=== PATIENT | female | born 1965 | race Caucasian/White ===

== ENCOUNTER 2020-08-25 17:49 | Emergency (ER) | payer OTHER ==
[~2020-08-25] VITALS: Ht 170.2 cm; Wt 97.1 kg
[~2020-08-25 17:49] MED LIST: AMOXICILLIN/POTASSIU PO; DOXYCYCLINE 10100 M1 PO; NORCO 5-325 TA1 EACH PO; PREDNISONE 10 M10 M1 PO; PROAIR HFA8.5 GM; PROTONIX40 M2 PO; PROZAC PO; SEE COMMENTS; TESSALON200 MG PO; VICODIN ES TAB1 EACH PO; VICODIN PO; ZOFRAN4 MG PO; [UNRECOGNIZED DRUG - OTHER]
[2020-08-25] MEDS ORDERED: CRESTOR20 MG PO (18:05)
[2020-08-25] MEDS ORDERED: LEXAPRO 10 MG T10 M2 PO (18:05)
[2020-08-25] MEDS ORDERED: KEFLEX500 M1 PO (20:19)
[2020-08-25] MEDS ORDERED: HYDROCODON-ACE1 EAC7 PO (20:19)
[2020-08-25 20:34] VITALS: BP 131/65
== END 2020-08-25 20:36 | disposition home or self-care (01) ==
LOC: M.ERS 17:49
DX: S61.212A Laceration without foreign body of right middle finger without damage to nail, initial encounter (principal); E78.5 Hyperlipidemia, unspecified; Z90.710 Acquired absence of both cervix and uterus; Z79.899 Other long term (current) drug therapy; W23.0XXA Caught, crushed, jammed, or pinched between moving objects, initial encounter; Y93.89 Activity, other specified; Y92.89 Other specified places as the place of occurrence of the external cause; Y99.8 Other external cause status